=== PATIENT | male | born 1990 | race Caucasian/White ===

== ENCOUNTER 2022-07-22 15:08 | Emergency (ER) | payer OTHER, MEDICAID ==
[2022-07-22] MEDS ORDERED: Ketorolac 30 MG/ML SDV IM ONE (15:26)
[2022-07-22 15:39] LABS: CHLORIDE,CL 104 mmol/L (98-107); ESTIMATED GFR 117 mL/min (>=60); SODIUM,NA 141 mmol/L (136-145)
== END 2022-07-22 16:15 | disposition home or self-care (01) ==
LOC: MERGE 15:08 → VM.ED 15:08
DX: R51.9 Headache, unspecified (principal); R42 Dizziness and giddiness
CPT/HCPCS: 36415; 80048; 85025; 96372; 99283; 99284; J1885